=== PATIENT | male | born 1965 | race African-American/Black ===

== ENCOUNTER 2020-04-11 10:51 | Emergency (ER) | payer MEDICAID ==
--- NOTE | 2020-04-11 11:58 | RAD ---
EXAM: XR Foot Rt 3 View STANDARD PROVIDED CLINICAL HISTORY: Pain FINDINGS: There is no evidence for fracture or other acute osseous abnormality. Alignment appears anatomic. Nani nt spaces appear preserved. IMPRESSION: No evidence for an acute osseous abnormality. If there is persistent clinical concern, conservative m anagement and follow-up imaging advised.
[2020-04-11] MEDS ORDERED: Acetaminophen 500 MG TAB ONE (13:16)
[2020-04-11] MEDS ORDERED: Colchicine 0.6 MG TAB PO SCH (13:30)
== END 2020-04-11 14:14 | disposition home or self-care (01) ==
LOC: ERS 10:51
DX: M10.9 Gout, unspecified (principal); F41.9 Anxiety disorder, unspecified